=== PATIENT | female | born 1960 | race Caucasian/White ===

== ENCOUNTER 2016-08-02 12:40 | Emergency (ER) | payer MEDICARE ==
[2016-08-02 12:40] VITALS: BMI 34.5
[2016-08-02 13:38] VITALS: BP 116/70; PULSE 99; RESP 18; TEMP 98.9; O2SAT 99
[2016-08-02] MEDS ORDERED: Sodium Chloride 0.9% 1,000 ML IV STA (13:47)
--- NOTE | 2016-08-02 14:00 | ED PDOC ---
HPI: General Adult Time Seen by Provider: 08/02/16 13:41 Chief Complaint (Nursing): Flu-like Symptoms Chief Complaint (Provider): Flu-like Symptoms History Per: Patient History/Exam Limitations: no limitations Onset/Duration Of Symptoms: Days (x5) Have you had recent travel within the past 21 days to any of the following countries: [place], [place], [place] or [place]?: No Current Symptoms Are (Timing): Still Present Additional Complaint(s): Joaquina Gonzales is a 55 year old female with a history of diabetes that presents to the ED with a chief complaint of cough, 4-5 episodes of nonbloody vomiting, nonbloody diarrhea, nausea, and body aches that she has been experiencing for the past five days. Patient reports that she has taken Nyquil in an attempt to relieve her symptoms but hat is has not helped. She states that she has experienced a loss in appetite, and had a fever TMax 103 degrees, but does not have any fever today. Patient denies any abdominal pain, sore throat, recent travel, or sick contacts. Past Medical History Reviewed: Historical Data, Nursing Documentation, Vital Signs Vital Signs: Last Vital Signs Temp 98.9 F 08/02/16 13:37 Pulse 99 H 08/02/16 13:37 Resp 18 08/02/16 13:37 BP 116/70 08/02/16 13:37 Pulse Ox 99 08/02/16 14:02 - Medical History PMH: Back Problems, Diabetes, Multiple Sclerosis Denies: Chronic Kidney Disease Other PMH: neck problems - Surgical History Surgical History: Cholecystectomy, Tonsillectomy, - Family History Family History: States: Unknown Family Hx - Immunization History Hx Tetanus Toxoid Vaccination: Yes Hx Influenza Vaccination: Yes Hx Pneumococcal Vaccination: Yes - Home Medications Home Medications: Ambulatory Orders Medication Instructions Recorded Atropine/Diphenoxylate [Lonox 1 tab PO Q8 #10 tab 05/19/15 0.025 MG-2.5 MG] Baclofen [Baclofen] 10 mg PO DAILY 05/19/15 Tramadol HCl [Ultram] 50 mg PO DAILY 05/19/15 Docusate [Colace] 100 mg PO BID #30 cap 04/03/16 Ondansetron ODT [Zofran ODT] 4 mg PO TID #21 odt 08/02/16 - Allergies Allergies/Adverse Reactions: Allergies Allergy/AdvReac Type Severity Reaction Status Date / Time Penicillins Allergy Mild RASH Verified 04/24/15 10:10 strawberry Allergy Mild RASH Verified 04/24/15 10:11 [place]BERRIES Allergy Mild RASH Uncoded 04/24/15 10:11 Review of Systems Constitutional: Positive for: Fever, Other (body aches) ENT: Negative for: Throat Pain Respiratory: Positive for: Cough Gastrointestinal: Positive for: Nausea, Vomiting (nonbloody), Diarrhea ( nonbloody). Negative for: Abdominal Pain Physical Exam - Reviewed Nursing Documentation Reviewed: Yes Vital Signs Reviewed: Yes - Physical Exam Appears: Positive for: Non-toxic, No Acute Distress Head Exam: Positive for: ATRAUMATIC, NORMOCEPHALIC Skin: Positive for: Normal Color, Warm Eye Exam: Positive for: Normal appearance, EOMI, PERRL ENT: Positive for: Normal ENT Inspection Cardiovascular/Chest: Positive for: Regular Rate, Rhythm. Negative for: Murmur Respiratory: Positive for: Normal Breath Sounds. Negative for: Wheezing Gastrointestinal/Abdominal: Positive for: Soft. Negative for: Tenderness Neurologic/Psych: Positive for: Alert, Oriented - Laboratory Results Result Diagrams: 08/02/16 14:15 08/02/16 14:15 - ECG O2 Sat by Pulse Oximetry: 99 (RA) Pulse Ox Interpretation: Normal - Radiology X-Ray: Interpreted by Va (CXR) X-Ray Interpretation: No Acute Disease - Progress Re-evaluation Time: 16:44 (Pt. informed of hematuria and instructed to f/u with PMD for further evaluation of hematuria. Denies back pain, flank pain, dysuria, hematuria. ) Condition: Re-examined, Improved Medical Decision Making Medical Decision Making: Impression: Flu-Like Symptoms Plan: * CMP * CBC * Sodium Chloride 1000 mL at 1000 mLs/hr * Blood Culture * Urinalysis * Chest X-Ray * Zofran 4 mg IV * Reevaluation Scribe Attestation: Documented by Johana Callahan, acting as a scribe for Rocky Collins PA-C. Provider Scribe Attestation: All medical record entries made by the Scribe were at my direction and personally dictated by me. I have reviewed the chart and agree that the record accurately reflects my personal performance of the history, physical exam, medical decision making, and the department course for this patient. I have also personally directed, reviewed, and agree with the discharge instructions and disposition. Disposition - Clinical Impression Clinical Impression: Hematuria, Viral syndrome - Patient ED Disposition Is Patient to be Admitted: No - Disposition [facility]errals: [facility] [Outside] Disposition: Routine/Home Disposition Time: 16:46 Condition: IMPROVED Prescriptions: Ondansetron ODT [Zofran ODT] 4 mg PO TID #21 odt Instructions: Viral Syndrome (ED) Print Language: BRUNEIAN
[2016-08-02 14:25] LABS: BASO % 0.5 % (0.0-2.0); EOS % 0.7 % (0.0-4.0); HEMATOCRIT 44.3 % (34.0-47.0); LYMPH # 1.8 K/uL (1.0-4.3); LYMPH % 37.3 % (20.0-40.0); MEAN CELL VOLUME 86.3 fl (81.0-99.0); MEAN CORPUSCULAR HGB CONC 33.6 g/dL (33.0-37.0); MEAN PLATELET VOLUME 8.4 fl (7.2-11.7); MONO # 0.9 K/uL (0.0-0.8); MONO % 19.6 % (0.0-10.0); NEUT % 41.9 % (50.0-75.0); NRBC % 0.1 % (0.0-0.0); RED CELL DISTRIBUTION WIDTH 13.7 % (11.5-14.5); WHITE BLOOD COUNT 4.7 K/uL (4.8-10.8)
[2016-08-02 14:39] LABS: ALB/GLOB RATIO 1.2 (1.0-2.1); ALKALINE PHOSPHATASE 95 U/L (38-126); ALT/SGPT 71 U/L (9-52); AST/SGOT 43 U/L (14-36); BILIRUBIN,TOTAL 0.8 mg/dl (0.2-1.3); BLOOD UREA NITROGEN 9 mg/dl (7-17); CALCIUM 9.1 mg/dL (8.4-10.2); CARBON DIOXIDE 27 mmol/L (22-30); CHLORIDE 102 mmol/L (98-107); GFR AFRICAN-AMERICAN > 60; GLUCOSE,RANDOM 91 mg/dL (65-105); POTASSIUM 3.6 MMOL/L (3.6-5.0); SODIUM 140 mmol/l (132-148); TOTAL PROTEIN 8.3 G/DL (6.3-8.2)
--- NOTE | 2016-08-02 15:09 | RAD ---
HISTORY: cough COMPARISON: No prior. TECHNIQUE: Chest PA and lateral FINDINGS: LUNGS: No active pulmonary disease. PLEURA: No significant pleural effusion identified. No pneumothorax apparent. CARDIOVASCULAR: Normal. OSSEOUS STRUCTURES: Minor multilevel degenerative spondylosis of the thoracic spine VISUALIZED UPPER ABDOMEN: Normal. OTHER FINDINGS: None. IMPRESSION: No active disease.
[2016-08-02 16:34] LABS: RBC URINE 24 /hpf (0-3); URINE BACTERIA OCC (<OCC); URINE BILIRUBIN NEGATIVE (NEGATIVE); URINE BLOOD LARGE (NEGATIVE); URINE COLOR YELLOW (YELLOW); URINE GLUCOSE (UA) NEG (Normal); URINE KETONE TRACE mg/dL (NEGATIVE); URINE LEUKOCYTE ESTERASE NEG Leu/uL (Negative); URINE PROTEIN NEGATIVE (NEGATIVE); WBC URINE 1 /hpf (0-5)
== END 2016-08-02 17:02 | disposition home or self-care (01) ==
LOC: H.ER 12:40
DX: B34.9 Viral infection, unspecified (principal); R05 Cough; R19.7 Diarrhea, unspecified; E11.9 Type 2 diabetes mellitus without complications
CPT/HCPCS: 71020; 80053; 81003; 85025; 87040; 96374; 99283; J2405; J7040